=== PATIENT | female | born 1995 | race Caucasian/White ===

== ENCOUNTER 2020-11-18 05:39 | Emergency (ER) | payer BC ==
[~2020-11-18] VITALS: Ht 165.1 cm; Wt 61.2 kg
[2020-11-18] MEDS ORDERED: ZOLOFT100 MG PO (05:50)
[2020-11-18 06:22] LABS: HEMOGLOBIN 14.1 gm/dL (12.0-15.0); MCH 31.8 pg (26.0-34.0); MCHC 34.3 g/dL (28.0-37.0); MCV 92.7 fL (80.0-100.0); MPV 6.9 fl. (7.2-11.1); RBC 4.43 mil/uL (4.20-5.00); RDW-CV 12.8 % (10.5-14.5); WBC 15.6 thou/uL (4.0-11.0)
[2020-11-18 06:25] LABS: CALCIUM 8.7 mg/dL (8.5-10.1); CREATININE 0.7 mg/dL (0.6-1.3); POTASSIUM 3.5 mmol/L (3.5-5.1)
[2020-11-18 06:34] LABS: ALCOHOL 96 mg/dL (<10); SALICYLATE < 2.8 mg/dL (2.8-20.0)
[2020-11-18 06:35] LABS: ALBUMIN 4.4 g/dL (3.4-5.0); TOTAL BILIRUBIN 0.2 mg/dL (<0.1-1.0); TOTAL PROTEIN 8.2 g/dL (6.4-8.2)
[2020-11-18 06:36] LABS: ACETAMINOPHEN < 2 ug/mL (10-30)
[2020-11-18 07:52] LABS: AMP/METHAMP Negative (Negative); BARBITURATES Negative (Negative); BENZODIAZEPINES Negative (Negative); COCAINE Negative (Negative); METHADONE Negative (Negative); OPIATES Negative (Negative); PCP Negative (Negative); THC POSITIVE (Negative)
[2020-11-18 08:06] LABS: URINE BILIRUBIN NEGATIVE (Negative); URINE BLOOD 1+ (Negative); URINE CLARITY CLEAR; URINE COLOR YELLOW; URINE GLUCOSE-RANDOM NEGATIVE (Negative); URINE KETONES NEGATIVE (Negative); URINE LEUKOCYTES NEGATIVE (Negative); URINE NITRITE NEGATIVE (Negative); URINE PROTEIN NEGATIVE (Negative); URINE UROBILINOGEN 0.2 E.U./dl (0.2-1.0)
[2020-11-18 08:07] LABS: BACTERIA 1-9 Few /HPF (None Seen); CASTS None Seen /LPF (None Seen); CRYSTALS None Seen /LPF (None Seen); SQUAMOUS 4-10 Moderate /LPF (0-3); URINE RBC 0-2 Rare /HPF (0-2); URINE WBC 0-5 Rare /HPF (0-5)
--- NOTE | 2020-11-19 13:52 | EKG ---
[place] [address] ELECTROCARDIOGRAM REPORT Name: MARISSA RICHARDS Room: [facility]#: [id number] Admission: 11/18/20 Attend Phys: Discharge: Date of : 89 Date of Service: 11/18/20 0604 Report #: [id number] THIS REPORT FOR: //name// [facility] ED Test Date: 2020-11-18 Test Time: 06:04:18 Pat Name: MARISSA RICHARDS Department: Room: Gender: Vp Production: [facility] : 1995 Requested By: Maya Bañuelos Order Number: [id number] MD: Romain Phan Measurements Intervals [place] Rate: 122 P: 75 DC: 150 QRS: 61 QRSD: 87 T: -76 QT: 320 QTc: 456 Interpretive Statements Sinus tachycardia Consider right atrial enlargement Nonspecific T abnormalities, diffuse leads No previous ECG available for comparison Electronically Signed On 11-19-2020 13:52:31 CDT by Romain Phan [email or web address] <ELECTRONICALLY SIGNED> By: Romain Phan MD, [facility] 11/19/20 1352 0604 3 Romain Phan MD, [facility] /EPI
[2020-11-19 16:37] VITALS: BP 116/67
== END 2020-11-19 16:37 ==
LOC: M.ERS 05:39
PROVIDERS: Personal Emergency Response Attendant
DX: T43.222A Poisoning by selective serotonin reuptake inhibitors, intentional self-harm, initial encounter (principal); Z20.822 Contact with and (suspected) exposure to COVID-19; F32.9 Major depressive disorder, single episode, unspecified; Z79.899 Other long term (current) drug therapy; Y92.89 Other specified places as the place of occurrence of the external cause